=== PATIENT | male | born 1975 | race Caucasian/White ===

== ENCOUNTER → 2019-03-13 13:25 | Outpatient (CLI) | payer BC, SELFPAY ==
--- NOTE | 2019-03-13 15:30 | CT_ITS ---
PROCEDURE: CT ABDOMEN PELVIS W CON CLINICAL HISTORY: RLQ ABD PAIN Right lower quadrant pain COMPARISON: No exams were available for comparison TECHNIQUE: 75 mL Optiray 350 PO Gastrografin the the a the the the Axial images obtained with sagittal and coronal reformats. All CT scans at the facility use one or more dose reduction, viz: automated exposure control, ma/kV adjustment per patient size (including targeted exams where dose is matched to indication, i.e. head), or iterative reconstruction technique. FINDINGS: There is patchy ground-glass density in the midlung winter on both sides consistent with patchy pneumonia. This is in the right middle lobe, right upper upper lobe inferiorly, lingula, and left lower lobe with sparing of the lung bases. The liver, gallbladder, spleen, adrenal glands, pancreas, and kidneys have an unremarkable appearance. No evidence of appendicitis or diverticulitis. There are diverticula within the sigmoid colon. No pelvic mass abnormal fluid collection or focal inflammatory change of the pelvis. There is a small umbilical hernia which contains fat the the with some slight haziness of the fat which is nonspecific. No acute bony findings. IMPRESSION: 1. Patchy ground-glass density in the mid lung winter on both sides consistent with bilateral pneumonitis. 2. No evidence of appendicitis or diverticulitis or renal or ureteral calculi 3. Colonic diverticulosis without diverticulitis Dictated by: Tomi Wilhelm MD 03/14/2019 03:38 Electronically signed by Tomi Wilhelm MD in [place] 03/14/2019 03:38
== END ==
PROVIDERS: PCP Internal Medicine Adolescent Medicine; Visit Provider Internal Medicine Adolescent Medicine
DX: R10.31 Right lower quadrant pain (principal)
CPT/HCPCS: 74177; Q9967

== ENCOUNTER 2022-06-10 15:17 | Outpatient (CLI) | payer BC, SELFPAY ==
[2022-06-10 15:33] VITALS: BMI 31.5
== END 2022-06-10 15:49 | disposition home or self-care (01) ==
PROVIDERS: PCP Internal Medicine Adolescent Medicine; Visit Provider Nurse Practitioner
DX: Z11.1 Encounter for screening for respiratory tuberculosis (principal)
CPT/HCPCS: 86580

== ENCOUNTER → 2022-06-19 09:00 | Outpatient (CLI) | payer BC, SELFPAY | PROVIDERS: PCP Internal Medicine Adolescent Medicine; Visit Provider Nurse Practitioner | DX: Z11.1 Encounter for screening for respiratory tuberculosis (principal) | CPT/HCPCS: 86580 ==